=== PATIENT | female | born 1965 | race Caucasian/White ===

== ENCOUNTER 2016-12-05 19:08 | Emergency (ER) | payer OTHER ==
--- NOTE | 2016-12-05 19:49 | ED ORDER SUMMARY ---
..... Patient: SHARI JJ OrderSheet [facility] VisitID: [id number] [address] [place] [address] 51y, F Registration Date/Time: 12/05/2016 ORDER SHEET Weight: 124.2 kg (stated) Allergies: Aspirin, Benadryl, Codeine, morphine, NSAIDs, Tylenol, Ketamine GENERAL ORDERS: MEDICATION ORDERS: Amoxicillin PO 500 mg (NOW) (19:26 12/05/2016 EKoroleva P.A.-C) (Ack 19:28 HSoule) (Cancelled: Other19:30 EKoroleva P.A.-C) Clindamycin PO 300 mg (NOW) (19:30 12/05/2016 EKoroleva P.A.-C) (Ack 19:32 HSoule) (19:37 HSoule) IV FLUIDS: ORDER SHEET NOTES: [Electronically signed by Kathy Bullock (20:59 12/05/2016)] [Electronically signed by Rose Gutiérrez P.A.-C (22:39 12/05/2016)] [Electronically locked/signed by Kathy Bullock (20:59 12/05/2016)]
--- NOTE | 2016-12-05 19:49 | ED NURSING NOTES ---
Clinical Report - Nurses [facility] [address] [place] [address] 12/05/2016 19:09 Patient: SHARI JJ TRIAGE Triage time 19:18 Dec 05 2016. Acuity: LEVEL 4. Chief Complaint: LEFT LOWER TOOTHACHE and SWELLING OF JAW / FACE. SEPSIS SCREEN: Sepsis Screen: negative. Negative (no infection suspected/documented). Heart rate greater than 90. CHICO COMA SCORE: [place] Coma Scale: 15- eyes open spontaneously (4); best verbal response- oriented x 4 (5); best motor response- obeys commands (6). --19:26 Kathy Bullock 19:18 12/05/16. BP: 125/86. HR: 115. RR: 18. O2 saturation: 96% on room air. Temp: 98.3 F (oral). Pain level now: 04/08. --19:26 Kathy Bullock. Weight: 124.2 kg stated. Height/Length: 67 inches Per Patient. BMI: 42.9. --19:25 Kathy Bullock. Medications MetFORMIN HCl Oral (Tablet 1000 mg) 1 tablet, 2x a day. --19:20 Kathy Bullock TraZODone HCl Oral. --19:20 Kathy Bullock Phenergan (Promethazine) Oral. --19:20 Kathy Bullock Venlafaxine HCl Oral. --19:20 Kathy Bullock Metoprolol Tartrate Intravenous. --19:21 Kathy Bullock Baclofen Oral. --19:21 Kathy Bullock Methylphenidate HCl Oral. --19:21 Kathy Bullock ALPRAZolam ER Oral. --19:21 Kathy Bullock Gabapentin Oral. --19:21 Kathy Bullock. Medication/allergy information source: the patient. --19:26 Kathy Bullock. Allergies Aspirin. Benadryl. Codeine. morphine. NSAIDs. Tylenol. --19:21 Kathy Bullock Ketamine. (Severe nightmares ) --19:28 Kathy Bullock. History Arrived by private vehicle. Historian: patient. Unaccompanied. Primary physician (Ashley blackman). Onset. (3 days). ( Patient reports she has broken teeth through her mouth. She states she went to see her doctor and was given amoxicillin and started it today. She states her pain has increased and she has swelling in her jaw area that radiates to her ear.). She has had ear pain. PAST MEDICAL HX: Immunizations: up-to-date. SOCIAL HX: Never smoker. Occasional alcohol use. No drug use. No infectious disease exposure. ABUSE ASSESSMENT: No report of abuse. SELF HARM ASSESSMENT: A self harm assessment was performed. The patient answered "no" to the question "Have you recently felt down, depressed, or hopeless?", "Have you noticed less interest or pleasure in doing things?", "Do you have thoughts of harming or killing yourself?", "Are you here because you tried to hurt yourself?", "Have you ever tried to hurt yourself before today?", "Have you recently had thoughts about harming or killing others?" and "Do you have any dangerous items in your possession?". FALL RISK ASSESSMENT: Fall risk assessment completed. No fall risk identified. NUTRITIONAL RISK ASSESSMENT: The nutritional risk assessment revealed no deficiencies. FUNCTIONAL ASSESSMENT: Functional assessment: no impairments noted. LEARNING NEEDS ASSESSMENT: The learning needs assessment revealed no barriers. SKIN INTEGRITY ASSESSMENT: Skin integrity risk assessment completed. No skin integrity risk identified. --: Kathy Bullock. PROBLEMS: Pedal Edema. Depression. Bipolar Disorder. Atrial Fibrillation. Diabetes Mellitus. Gastroesophageal Reflux Disease. --19: Kathy Bullock. ADDITIONAL SURGERIES: Bunionectomy. . Hysterectomy. Tubal Ligation. --19: Kathy Bullock. Interventions ID band on patient. To treatment room. --: Kathy Bullock. PHYSICAL ASSESSMENT GENERAL / NEURO / PSYCH: Alert. Oriented X 4. Appears in no acute distress. HEENT: Voice within normal limits. Extensive dental decay. Mucous membranes are pink. RESPIRATORY: Respirations not labored. SKIN: Skin is warm and dry. --19: Kathy Bullock. NURSING PROGRESS NOTES 19:28 12/05/16. Cold pack applied. Reassurance given to the patient. Two patient identifiers checked. Call light placed in reach. Side rails up x 1. Bed placed in lowest position. Brakes of bed on. Patient ready for evaluation- chart flagged and ED physician notified. --19:28 Kathy Bullock 19:37 12/05/2016 Clindamycin PO Capsules 300 mg given. Allergies verified and confirmed 5 rights. --19:37 Kathy Bullock. DISPOSITION / DISCHARGE 20:00 12/05/16. Condition at departure: stable. The goals identified in the patient's plan of care were met. No learning barriers present. Discharge instructions provided and reviewed with the patient. Reviewed medication(s) side effects, precautions, dosing and course information. Prescription(s) given to the patient. Verbalized understanding. Written instructions provided in Syriac. ( Follow up with dentist in three days. Return if symptoms worsen. Warm salt water swishes may help. Keep mouth clean and rinse between eating and drinking. Patient verbalized understanding of instructions and had no questions at this time.). The patient was discharged by the physician medical office assistant instructor. She was discharged home and unaccompanied at time of discharge. She left the Emergency Department ambulatory and via private vehicle. Patient driving. FALL RISK ASSESSMENT: Fall risk assessment completed. No fall risk identified. --20:59 Kathy Bullock 20:00 12/05/16. BP: 122/60. HR: 110. RR: 20. O2 saturation: 96% on room air. Temp: 98 F (oral). Pain level now: 02/06. --20:59 Kathy Bullock. Locked/Released at 12/05/2016 20:59 by Kathy Bullock,
--- NOTE | 2016-12-05 19:49 | ED ORDER SUMMARY ---
..... Patient: SHARI JJ OrderSheet [facility] VisitID: [id number] [address] [place] [address] 51y, F Registration Date/Time: 12/05/2016 ORDER SHEET Weight: 124.2 kg (stated) Allergies: Aspirin, Benadryl, Codeine, morphine, NSAIDs, Tylenol, Ketamine GENERAL ORDERS: MEDICATION ORDERS: Amoxicillin PO 500 mg (NOW) (19:26 12/05/2016 EKoroleva P.A.-C) (Ack 19:28 HSoule) (Cancelled: Other19:30 EKoroleva P.A.-C) Clindamycin PO 300 mg (NOW) (19:30 12/05/2016 EKoroleva P.A.-C) (Ack 19:32 HSoule) (19:37 HSoule) IV FLUIDS: ORDER SHEET NOTES: [Electronically signed by Kathy Bullock (20:59 12/05/2016)] [Electronically signed by Rose Gutiérrez P.A.-C (22:39 12/05/2016)] [Electronically locked/signed by Kathy Bullock (20:59 12/05/2016)]
--- NOTE | 2016-12-05 19:49 | ED CLINICAL REPORT ---
Clinical Report - Physicians/Mid Levels [facility] [address] [place] [address] 12/05/2016 19:09 Patient: SHARI JJ Time Seen: 21:17 Dec 05 2016. Arrived- By private vehicle. Historian- patient. HISTORY OF PRESENT ILLNESS Chief Complaint: DENTAL PAIN. 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 Pain described as mild. The patient has had toothache and swelling of the jaw. (Left lower jaw pain on amox, worsening. NO diff swallowing. Pt denies cough. Denies trauma. Awaiting oral surgeon referral, recent dental visit about 2 mos prior.). REVIEW OF SYSTEMS No fever, cough, difficulty breathing, nausea or diarrhea. No abdominal pain, headache or enlarged lymph nodes. All systems otherwise negative, except as recorded above. SOCIAL HISTORY Never smoker. Alcohol use. No drug use. ADDITIONAL NOTES The nursing notes have been reviewed. PHYSICAL EXAM Vital Signs: 12/05/2016 19:18 BP: 125/86. HR: 115. RR: 18. O2 saturation: 96%. Temp: 98.3 F. Pain level now: 8/10. Appearance: Alert. Head: Normal external inspection. ENT: Dental decay. Nose normal. Lips normal. Uvula midline. No pharyngeal erythema, peritonsillar mass or muffled or hoarse voice. Neck: Trachea midline. No adenopathy. No thyromegaly. CVS: Normal heart rate and rhythm. Heart sounds normal. Respiratory: No respiratory distress. Breath sounds normal. Chest nontender. No stridor, rales or rhonchi. Skin: Normal skin color. PROGRESS AND PROCEDURES Course of Care: Uvula midline. Patient no distress. Decay and erythema of the gumline. No palpable abscess. Patient afebrile. Patient very stable. To follow up outpatient. NO signs of ludwigs angina. Patient is stable. Symptoms better. Patient/family counseled. Disposition: Discharged. CLINICAL IMPRESSION Moderate dental pain. INSTRUCTIONS Drink plenty of fluids. Prescription Medications: Cleocin 300 mg: take 1 capsule orally every 8 hours for 10 days. No refill. Substitution is permissible. Follow-up: Follow up with your doctor in three days. (Electronically signed by Rose Gutiérrez P.A.-C 12/05/2016 22:39)
--- NOTE | 2016-12-05 19:49 | ED CLINICAL REPORT ---
Clinical Report - Physicians/Mid Levels [facility] [address] [place] [address] 12/05/2016 19:09 Patient: SHARI JJ Time Seen: 21:17 Dec 05 2016. Arrived- By private vehicle. Historian- patient. HISTORY OF PRESENT ILLNESS Chief Complaint: DENTAL PAIN. 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 Pain described as mild. The patient has had toothache and swelling of the jaw. (Left lower jaw pain on amox, worsening. NO diff swallowing. Pt denies cough. Denies trauma. Awaiting oral surgeon referral, recent dental visit about 2 mos prior.). REVIEW OF SYSTEMS No fever, cough, difficulty breathing, nausea or diarrhea. No abdominal pain, headache or enlarged lymph nodes. All systems otherwise negative, except as recorded above. SOCIAL HISTORY Never smoker. Alcohol use. No drug use. ADDITIONAL NOTES The nursing notes have been reviewed. PHYSICAL EXAM Vital Signs: 12/05/2016 19:18 BP: 125/86. HR: 115. RR: 18. O2 saturation: 96%. Temp: 98.3 F. Pain level now: 8/10. Appearance: Alert. Head: Normal external inspection. ENT: Dental decay. Nose normal. Lips normal. Uvula midline. No pharyngeal erythema, peritonsillar mass or muffled or hoarse voice. Neck: Trachea midline. No adenopathy. No thyromegaly. CVS: Normal heart rate and rhythm. Heart sounds normal. Respiratory: No respiratory distress. Breath sounds normal. Chest nontender. No stridor, rales or rhonchi. Skin: Normal skin color. PROGRESS AND PROCEDURES Course of Care: Uvula midline. Patient no distress. Decay and erythema of the gumline. No palpable abscess. Patient afebrile. Patient very stable. To follow up outpatient. NO signs of ludwigs angina. Patient is stable. Symptoms better. Patient/family counseled. Disposition: Discharged. CLINICAL IMPRESSION Moderate dental pain. INSTRUCTIONS Drink plenty of fluids. Prescription Medications: Cleocin 300 mg: take 1 capsule orally every 8 hours for 10 days. No refill. Substitution is permissible. Follow-up: Follow up with your doctor in three days. (Electronically signed by Rose Gutiérrez P.A.-C 12/05/2016 22:39)
--- NOTE | 2016-12-05 22:39 | ED DISCHARGE INSTRUCTIONS ---
Patient: SHARI JJ General Instructions [facility] VisitID: [id number] [address] [place] [address] 51y, F Registration Date/Time: 12/05/2016 Moderate dental pain. INSTRUCTIONS Drink plenty of fluids. Prescription Medications: Cleocin 300 mg: take 1 capsule orally every 8 hours for 10 days. No refill. Substitution is permissible. Follow-up: Follow up with your doctor in three days. ADDITIONAL INFORMATION Dental Pain A crack or cavity in the tooth, which exposes the sensitive inner area of the tooth can cause tooth pain. An infection in the gum or the root of the tooth can cause pain and swelling. The pain is often made worse by drinking hot or cold fluids, or biting on hard foods. Pain may spread from the tooth to the ear or jaw on the same side. Home Care: Avoid hot and cold foods and liquids since your tooth may be sensitive to temperature changes. If your tooth is chipped or cracked, or if there is a large open cavity, apply OIL OF CLOVES (available [id number]-[id number] in drug stores) directly to the tooth to reduce pain. Some pharmacies carry an [id number]-[id number] "toothache kit." This contains a paste, which can be applied over the exposed tooth to decrease sensitivity. A cold pack on your jaw over the sore area may help reduce pain. You may use acetaminophen (Tylenol) or ibuprofen (Motrin, Advil) to control pain, unless another medicine was prescribed. [ NOTE: If you have chronic liver or kidney disease or ever had a stomach ulcer or GI bleeding, talk with your doctor before using these medicines.] If you have signs of an infection, an antibiotic will be given. Take it as directed. Follow-Up as directed with a dentist. Your pain may go away with the treatment given. However, only a dentist can fully evaluate and treat the cause and prevent the pain from coming back again. TOOTHACHE IS A SIGN OF DISEASE IN YOUR TOOTH AND SHOULD BE EXAMINED AND TREATED BY A DENTIST. Get Prompt Medical Attention if any of the following occur: Your face becomes swollen or red Pain worsens or spreads to the neck Fever over 100.4 F (38.0 C) Unusual drowsiness; headache or stiff neck; weakness or fainting Pus drains from the tooth Difficulty swallowing or breathing Clindamycin Hydrochloride Oral capsule What is this medicine? CLINDAMYCIN (KATHYA Abrams) is a lincosamide antibiotic. It is used to treat certain kinds of bacterial infections. It will not work for colds, flu, or other viral infections. How should I use this medicine? Take this medicine by mouth with a full glass of water. Follow the directions on the prescription label. You can take this medicine with food or on an empty stomach. If the medicine upsets your stomach, take it with food. Take your medicine at regular intervals. Do not take your medicine more often than directed. Take all of your medicine as directed even if you think your are better. Do not skip doses or stop your medicine early. Talk to your couples therapist regarding the use of this medicine in children. Special care may be needed. What side effects may I notice from receiving this medicine? Side effects that you should report to your doctor or health animal caregiver as soon as possible: allergic reactions like skin rash, itching or hives, swelling of the face, lips, or tongue dark urine pain on swallowing redness, blistering, peeling or loosening of the skin, including inside the mouth unusual bleeding or bruising unusually weak or tired yellowing of eyes or skin Side effects that usually do not require medical attention (report to your doctor or health animal caregiver if they continue or are bothersome): diarrhea itching in the rectal or genital area joint pain nausea, vomiting stomach pain What may interact with this medicine? chloramphenicol erythromycin kaolin products What if I miss a dose? If you miss a dose, take it as soon as you can. If it is almost time for your next dose, take only that dose. Do not take double or extra doses. Where should I keep my medicine? Keep out of the reach of children. Store at room temperature between 20 and 25 degrees C (68 and 77 degrees F). Throw away any unused medicine after the expiration date. What should I tell my health care provider before I take this medicine? They need to know if you have any of these conditions: kidney disease liver disease stomach problems like colitis an unusual or allergic reaction to clindamycin, lincomycin, or other medicines, foods, dyes like tartrazine or preservatives or trying to get breast-feeding What should I watch for while using this medicine? Tell your doctor or healthcare professional if your symptoms do not start to get better or if they get worse. Do not treat diarrhea with over the counter products. Contact your doctor if you have diarrhea that lasts more than 2 days or if it is severe and watery. You have been given the following additional information: Dental Pain Clindamycin Hydrochloride Oral capsule (Electronically signed by Rose Gutiérrez P.A.-C 12/05/2016 22:39)
--- NOTE | 2016-12-05 22:39 | ED MED RECONCILIATION SUMMARY ---
Patient: SHARI JJ Medication Reconciliation Report Located [facility] VisitID: [id number] [address] [place] [address] 51y, F Registration Date/Time: 12/05/2016 Weight: 124.2 kg Height/Length: 67 in. BMI: 42.9 ALLERGIES: Aspirin, Benadryl, Codeine, Ketamine, morphine, NSAIDs, Tylenol The patient's Home Medications are listed below: THE FOLLOWING MEDICATIONS NEED TO BE RECONCILED: ALPRAZolam ER Oral Baclofen Oral Gabapentin Oral MetFORMIN HCl Oral (1000 mg) 1 tablet, 2x a day Methylphenidate HCl Oral Metoprolol Tartrate Intravenous Phenergan (Promethazine) Oral TraZODone HCl Oral Venlafaxine HCl Oral The source(s) of the original Home Medication information: patient The following Medications were given to the patient in the Emergency Department: Clindamycin [PO] PO 300 mg, administered: 12/05/2016 7:37:00 PM The following Medications were prescribed to the patient: Cleocin 300 mg: take 1 capsule orally every 8 hours for 10 days. No refill. Substitution is permissible. -- Rose Gutiérrez P.A.-C
--- NOTE | 2016-12-05 22:39 | ED MED RECONCILIATION SUMMARY ---
Patient: SHARI JJ Medication Reconciliation Report [facility] VisitID: [id number] [address] [place] [address] 51y, F Registration Date/Time: 12/05/2016 Weight: 124.2 kg Height/Length: 67 in. BMI: 42.9 ALLERGIES: Aspirin, Benadryl, Codeine, Ketamine, morphine, NSAIDs, Tylenol The patient's Home Medications are listed below: THE FOLLOWING MEDICATIONS NEED TO BE RECONCILED: ALPRAZolam ER Oral Baclofen Oral Gabapentin Oral MetFORMIN HCl Oral (1000 mg) 1 tablet, 2x a day Methylphenidate HCl Oral Metoprolol Tartrate Intravenous Phenergan (Promethazine) Oral TraZODone HCl Oral Venlafaxine HCl Oral The source(s) of the original Home Medication information: patient The following Medications were given to the patient in the Emergency Department: Clindamycin [PO] PO 300 mg, administered: 12/05/2016 7:37:00 PM The following Medications were prescribed to the patient: Cleocin 300 mg: take 1 capsule orally every 8 hours for 10 days. No refill. Substitution is permissible. -- Rose Gutiérrez P.A.-C
--- NOTE | 2016-12-05 22:39 | ED MAR SUMMARY ---
..... Medication Administration Record [address] [place] [address] Patient: SHARI JJ Visit ID: [id number] 51y, F Weight: 124.2 kg Height/Length: 67 in BMI: 42.9 ALLERGIES: Aspirin, Benadryl, Codeine, morphine, NSAIDs, Tylenol, Ketamine Given 19:37 12/05/2016 Kathy Bullock, Medication Administered: CLINDAMYCIN [PO], Dose: 300 mg Capsules PO. Medication Ordered: Clindamycin PO 300 mg (NOW).
--- NOTE | 2016-12-05 22:39 | ED DISCHARGE INSTRUCTIONS ---
Patient: SHARI JJ General Instructions [facility] VisitID: [id number] [address] [place] [address] 51y, F Registration Date/Time: 12/05/2016 Moderate dental pain. INSTRUCTIONS Drink plenty of fluids. Prescription Medications: Cleocin 300 mg: take 1 capsule orally every 8 hours for 10 days. No refill. Substitution is permissible. Follow-up: Follow up with your doctor in three days. ADDITIONAL INFORMATION Dental Pain A crack or cavity in the tooth, which exposes the sensitive inner area of the tooth can cause tooth pain. An infection in the gum or the root of the tooth can cause pain and swelling. The pain is often made worse by drinking hot or cold fluids, or biting on hard foods. Pain may spread from the tooth to the ear or jaw on the same side. Home Care: Avoid hot and cold foods and liquids since your tooth may be sensitive to temperature changes. If your tooth is chipped or cracked, or if there is a large open cavity, apply OIL OF CLOVES (available suka-ert-uzqbpgz in drug stores) directly to the tooth to reduce pain. Some pharmacies carry an [id number]-yvp-plywxtk "toothache kit." This contains a paste, which can be applied over the exposed tooth to decrease sensitivity. A cold pack on your jaw over the sore area may help reduce pain. You may use acetaminophen (Tylenol) or ibuprofen (Motrin, Advil) to control pain, unless another medicine was prescribed. [ NOTE: If you have chronic liver or kidney disease or ever had a stomach ulcer or GI bleeding, talk with your doctor before using these medicines.] If you have signs of an infection, an antibiotic will be given. Take it as directed. Follow-Up as directed with a dentist. Your pain may go away with the treatment given. However, only a dentist can fully evaluate and treat the cause and prevent the pain from coming back again. TOOTHACHE IS A SIGN OF DISEASE IN YOUR TOOTH AND SHOULD BE EXAMINED AND TREATED BY A DENTIST. Get Prompt Medical Attention if any of the following occur: Your face becomes swollen or red Pain worsens or spreads to the neck Fever over 100.4 F (38.0 C) Unusual drowsiness; headache or stiff neck; weakness or fainting Pus drains from the tooth Difficulty swallowing or breathing Clindamycin Hydrochloride Oral capsule What is this medicine? CLINDAMYCIN (KATHYA Abrams) is a lincosamide antibiotic. It is used to treat certain kinds of bacterial infections. It will not work for colds, flu, or other viral infections. How should I use this medicine? Take this medicine by mouth with a full glass of water. Follow the directions on the prescription label. You can take this medicine with food or on an empty stomach. If the medicine upsets your stomach, take it with food. Take your medicine at regular intervals. Do not take your medicine more often than directed. Take all of your medicine as directed even if you think your are better. Do not skip doses or stop your medicine early. Talk to your rollway man regarding the use of this medicine in children. Special care may be needed. What side effects may I notice from receiving this medicine? Side effects that you should report to your doctor or health healthcare educator as soon as possible: allergic reactions like skin rash, itching or hives, swelling of the face, lips, or tongue dark urine pain on swallowing redness, blistering, peeling or loosening of the skin, including inside the mouth unusual bleeding or bruising unusually weak or tired yellowing of eyes or skin Side effects that usually do not require medical attention (report to your doctor or health healthcare educator if they continue or are bothersome): diarrhea itching in the rectal or genital area joint pain nausea, vomiting stomach pain What may interact with this medicine? chloramphenicol erythromycin kaolin products What if I miss a dose? If you miss a dose, take it as soon as you can. If it is almost time for your next dose, take only that dose. Do not take double or extra doses. Where should I keep my medicine? Keep out of the reach of children. Store at room temperature between 20 and 25 degrees C (68 and 77 degrees F). Throw away any unused medicine after the expiration date. What should I tell my health care provider before I take this medicine? They need to know if you have any of these conditions: kidney disease liver disease stomach problems like colitis an unusual or allergic reaction to clindamycin, lincomycin, or other medicines, foods, dyes like tartrazine or preservatives or trying to get breast-feeding What should I watch for while using this medicine? Tell your doctor or healthcare professional if your symptoms do not start to get better or if they get worse. Do not treat diarrhea with over the counter products. Contact your doctor if you have diarrhea that lasts more than 2 days or if it is severe and watery. You have been given the following additional information: Dental Pain Clindamycin Hydrochloride Oral capsule (Electronically signed by Rose Gutiérrez P.A.-C 12/05/2016 22:39)
--- NOTE | 2016-12-05 22:39 | ED MAR SUMMARY ---
..... Medication Administration Record [address] [place] [address] Patient: SHARI JJ Visit ID: [id number] 51y, F Weight: 124.2 kg Height/Length: 67 in BMI: 42.9 ALLERGIES: Aspirin, Benadryl, Codeine, morphine, NSAIDs, Tylenol, Ketamine Given 19:37 12/05/2016 Kathy Bullock, Medication Administered: CLINDAMYCIN [PO], Dose: 300 mg Capsules PO. Medication Ordered: Clindamycin PO 300 mg (NOW).
== END 2016-12-05 20:00 | disposition home or self-care (01) ==
LOC: ED SRH 19:08
DX: K08.89 Other specified disorders of teeth and supporting structures (principal); Z88.6 Allergy status to analgesic agent; Z88.5 Allergy status to narcotic agent; Z88.9 Allergy status to unspecified drugs, medicaments and biological substances; Z79.84 Long term (current) use of oral hypoglycemic drugs